=== PATIENT | male | born 1995 | race Caucasian/White ===

== ENCOUNTER 2016-06-20 19:10 | Emergency (ER) | payer BC, OTHER ==
[~2016-06-20] VITALS: Ht 162.6 cm; Wt 71.6 kg
[~2016-06-20 19:10] MED LIST changes: -BSP/10 PO; -LISD30CA4 PO
[2016-06-20 19:14] VITALS: TEMP 37.1; Ht 162.6 cm; Wt 71.6 kg
[2016-06-20] MEDS ORDERED: BSP/10 PO (20:29)
[2016-06-20] MEDS ORDERED: LISD30CA4 PO (20:29)
[2016-06-20] MEDS ORDERED: SOAP SUDS ENEMA PR ONE (20:30)
--- NOTE | 2016-06-20 20:42 | EMERGENCY ROOM VISIT NOTE ---
ED Visit Note First contact with patient: 20:03 I have seen and examined this patient with Dale Bustamante and generally agree with the treatment plan as discussed. Problem List Medical Problems: (1) Acid reflux Status: Chronic (2) Asthma Status: Resolved (3) Autism spectrum disorder Status: Chronic (4) Cornela Delang Syndrome Status: Chronic (5) Mental retardation Status: Chronic (6) PDD (pervasive developmental disorder) Status: Chronic (7) Schizophrenia Status: Chronic Current/Historical Medications Scheduled Buspirone HCl (Buspirone HCl), 10 MG PO BID Fluoxetine (Prozac), 20 MG PO QAM Lisdexamfetamine Dimesylate (Vyvanse), 30 MG PO QAM Lurasidone Hcl (Latuda), 80 MG PO QAM Montelukast Sodium (Singulair), 10 MG PO QPM Multivitamin (Multivitamin), 1 TAB PO DAILY Omeprazole (Prilosec), 20 MG PO DAILY Allergies Coded Allergies: Gluten (Unverified Allergy, Unknown, GI SYMPTOMS, 06/20/16) Pt has celiac disease - no gluten Vital Signs Date Time Temp Pulse Resp B/P Pulse Ox O2 Delivery O2 Flow Rate FiO2 06/20/16 19:14 37.1 88 18 132/68 99 Room Air Departure Information Referrals Timothy Weber M.D. (PCP) Patient Instructions My [facility]
[2016-06-20] MEDS ORDERED: MAGNESIUM CITRATE 296 ML/BTL PO ONE (22:00)
[2016-06-20 22:04] VITALS: BP 143/84; PULSE 86; O2SAT 98
--- NOTE | 2016-06-21 00:44 | EMERGENCY ROOM VISIT NOTE ---
History First contact with patient: 20:03 Chief Complaint: REFERRED BY DOCTOR Stated Complaint: BACKED UP, BLOCKED INTESTINES STOOL History of Present Illness The patient is a 20 year old male who presents to the Emergency Room with complaints of constipation for the past few days. The patient is accompanied by his mother who assists in the history and provide consent to treat. Evidently the patient has had some mild diarrhea this week and had outpatient x- ray performed. X-ray was suggestive of a severe cough and, and the patient was referred to the ER for further management. The patient himself does not have significant complaints. He does not have chest pain or shortness of breath. No blood with defecation. He has been eating and drinking as normal. He will often take a stool softener, but has not had to do that this week because of his mild diarrhea. The patient rates his discomfort a 6/10. Review of Systems More than 10 systems were reviewed and otherwise negative with the exception of history of present illness. Past Medical/Surgical History Medical Problems: (1) Acid reflux (2) Asthma (3) Autism spectrum disorder (4) Cornela Delang Syndrome (5) Mental retardation (6) PDD (pervasive developmental disorder) (7) Schizophrenia Family History Autoimmune disorder Cancer Gallbladder disease Heart disease Hypertension Kidney disease Kidney stones Lung disease Seizures Social History Smoking Status: Never Smoker Alcohol Use: none Drug Use: none Marital Status: single Housing Status: lives with family Occupation Status: [employer] student Current/Historical Medications Scheduled Buspirone HCl (Buspirone HCl), 10 MG PO BID Fluoxetine (Prozac), 20 MG PO QAM Lisdexamfetamine Dimesylate (Vyvanse), 30 MG PO QAM Lurasidone Hcl (Latuda), 80 MG PO QAM Montelukast Sodium (Singulair), 10 MG PO QPM Multivitamin (Multivitamin), 1 TAB PO DAILY Omeprazole (Prilosec), 20 MG PO DAILY Allergies Coded Allergies: Gluten (Unverified Allergy, Unknown, GI SYMPTOMS, 06/20/16) Pt has celiac disease - no gluten Physical Exam Vital Signs Date Time Temp Pulse Resp B/P Pulse Ox O2 Delivery O2 Flow Rate FiO2 06/20/16 22:04 86 17 143/84 98 06/20/16 19:14 37.1 88 18 132/68 99 Room Air Pain Rating (0-10): 0 Physical Exam VITALS: Vitals are noted on the nurse's note and reviewed by myself. Vital signs stable. GENERAL: Well-developed, well-nourished, white male, who is in no acute distress and resting comfortably. Patient is cooperative with the examination. HEAD: Normocephalic atraumatic. HEART: Regular rate and rhythm without murmurs gallops or rubs. LUNGS: Clear to auscultation bilaterally without wheezes, rales or rhonchi. No retractions or accessory muscle use. ABDOMEN: Positive normal bowel sounds x 4. Firm and minimally distended. No significant tenderness noted. MUSCULOSKELETAL: No muscle atrophy, erythema, or edema noted. Full range of motion without joint tenderness in all extremities. Medical Decision & Procedures Medications Administered Medications (Trade) Dose Ordered Sig/[place] Route Start Time Stop Time Status Last Admin Dose Admin Miscellaneous (Soap Suds Enema) [address] 06/20/16 20:30 06/20/16 20:31 DC 06/20/16 21:00 1 EA Magnesium Citrate (Citrate Of Magnesia Soln) 296 ml NOW ONCE PO 06/20/16 22:00 06/20/16 22:01 DC 06/20/16 22:00 296 ML ED Course Physical exam and history were performed. Nursing notes and EMR were reviewed. Patient appears to have constipation for the past week. X-rays were performed at this facility about 12 hours ago and were available for my review. The patient does have notable constipation. I discussed options of care with the family and elected to perform a soapsuds enema. The patient was able to tolerate this well, and had significant results following application. Overall the patient abdomen felt much softer and continued to be without tenderness following a very significant bowel movement. Overall the patient does appear stable for discharge home. The patient will be given a course of magnesium citrate to take tomorrow morning. He should return to using a stool softener. The patient and family were asked to follow with her PCP this week and otherwise invited back to the ER with any new, worsening, or concerning symptoms. The chart was completed utilizing [employer] Voice Recognition Software. Grammatical errors, random word insertions, pronoun errors, and incomplete sentences are an occasional consequence of this system due to software limitations, ambient noise, and hardware issues. Any formal questions or concerns about the content, text, or information contained within the body of this dictation should be directly addressed to the provider for clarification. . Medical Decision Differential diagnosis includes, but is not limited to: Appendicitis, cholecystitis, constipation, colitis, small bowel obstruction, viral infection, constipation, and others Impression Primary Impression: Constipation Departure Information Dispostion Home / Self-Care Condition FAIR Forms HOME CARE DOCUMENTATION FORM, IMPORTANT VISIT INFORMATION Patient Instructions My [facility] Additional Instructions You were seen and evaluated today on an emergency basis only. This is not a substitute for, or an effort to provide, complete comprehensive medical care. It is not possible to recognize and treat all injuries or illnesses in a single emergency department visit. For this reason it is recommended that you followup with your primary care physician next week if any ongoing or persistent symptoms. Take magnesium citrate tomorrow. Take half the bottle, and then 1 hour later take the other half. Be sure to drink plenty of fluids throughout the day as this medication will elicit a bowel movement. You are welcome to return to the emergency department anytime with new, worsening, or concerning symptoms.
== END 2016-06-20 22:05 | disposition home or self-care (01) ==
LOC: C.EDB 19:11 → C.EDD 22:05
DX: K59.00 Constipation, unspecified (principal); J45.909 Unspecified asthma, uncomplicated; K21.9 Gastro-esophageal reflux disease without esophagitis; F20.9 Schizophrenia, unspecified; F79 Unspecified intellectual disabilities; F84.0 Autistic disorder; Z79.899 Other long term (current) drug therapy; Z91.018 Allergy to other foods; Z80.9 Family history of malignant neoplasm, unspecified; Z83.79 Family history of other diseases of the digestive system; Z82.49 Family history of ischemic heart disease and other diseases of the circulatory system; Z84.1 Family history of disorders of kidney and ureter; Z82.0 Family history of epilepsy and other diseases of the nervous system

== ENCOUNTER → 2016-06-20 | Outpatient (CLI) | payer BC, OTHER ==
[~2016-06-20] MED LIST: BSP/10 PO; DOCU100C31 PO; FLUO20CA35 PO; LISD20CA PO; LISD30CA4 PO; LURA40TA PO; MONT1TAB3 PO; MULT-506 PO; PRLSR20 PO
--- NOTE | 2016-06-20 11:21 | DIAGNOSTIC IMAGING REPORT ---
PA CHEST RADIOGRAPH AND UPRIGHT AND SUPINE AP RADIOGRAPHS OF THE ABDOMEN CLINICAL HISTORY: Fecal incontinence. Change in bowel habits. COMPARISON STUDY: CT of the abdomen and pelvis no February 01, 2014 and chest radiograph June 26, 2014. FINDINGS: An azygos fissure is incidentally noted. No consolidation is present. There is no evidence of pulmonary edema. Cardiac size is normal. Mediastinal contours are normal. There is no free air. There is a large amount of stool within the rectum with there is a moderate to large amount stool within the colon. A 7 mm left renal calculus is noted. There is mild S-shaped scoliosis of the thoracolumbar spine. IMPRESSION: 1. Large amount of stool within the rectum consistent with fecal impaction. Moderate to large amount of stool within the colon. 2. No free air. Mild colonic distention. 3. No acute cardiopulmonary findings. 4. 7 mm left renal calculus. Electronically signed by: Adrian Merida M.D. 06/20/2016 11:19 AM Dictated Date/Time: 06/20/2016 11:17 AM
== END | disposition home or self-care (01) ==
LOC: C.RAD 10:36
PROVIDERS: ATTEND Internal Medicine Gastroenterology
DX: R15.9 Full incontinence of feces (principal); N20.0 Calculus of kidney

== ENCOUNTER 2017-07-01 12:19 | Emergency (ER) | payer BC, OTHER ==
[~2017-07-01] VITALS: Ht 162.6 cm; Wt 74.0 kg
[~2017-07-01 12:19] MED LIST changes: +BSP/10 PO; -DOCU100C31 PO; -LISD20CA PO; +LISD30CA4 PO
[2017-07-01 12:23] VITALS: Ht 162.6 cm; Wt 74.0 kg
[2017-07-01] MEDS ORDERED: LISD50CA4 PO (12:56)
[2017-07-01 13:21] LABS: BASO % 0.3 %; BASO ABS # 0.03 K/uL (0-0.2); EOS % 1.7 %; EOS ABS # 0.18 K/uL (0-0.5); HEMATOCRIT 45.3 % (42-52); IG# 0.03 K/uL (0.00-0.02); LYMPH ABS # 3.03 K/uL (1.2-3.4); MEAN CELL VOLUME 81.6 fL (80-100); MEAN CORPUSCULAR HEMOGLOBIN 28.8 pg (25-34); MEAN CORPUSCULAR HGB CONC 35.3 g/dl (32-36); MEAN PLATELET VOLUME 9.9 fL (7.4-10.4); MONO % 10.2 %; MONO ABS # 1.07 K/uL (0.11-0.59); NEUT % 58.5 %; NEUT ABS # 6.11 K/uL (1.4-6.5); PLATELET COUNT 229 K/uL (130-400); RED CELL DISTRIBUTION WIDTH CV 14.1 % (11.5-14.5); RED CELL DISTRIBUTION WIDTH SD 41.6 fL (36.4-46.3); WHITE BLOOD COUNT 10.45 K/uL (4.8-10.8)
[2017-07-01 13:41] LABS: ALBUMIN 4.4 gm/dl (3.4-5.0); CALCIUM 9.4 mg/dl (8.5-10.1); CREATININE 1.03 mg/dl (0.60-1.40); POTASSIUM 4.2 mmol/L (3.5-5.1)
[2017-07-01 13:51] LABS: TOTAL PROTEIN 7.3 gm/dl (6.4-8.2)
[2017-07-01 15:00] VITALS: BP 115/68; PULSE 62; O2SAT 98
--- NOTE | 2017-07-01 15:25 | EMERGENCY ROOM VISIT NOTE ---
History Report prepared by Tereza: Simone Sheehan Under the Supervision of: Dr. Elier Mcgee D.O. First contact with patient: 12:38 Chief Complaint: MENTAL HEALTH EVALUATION Stated Complaint: PSYCH PROBLEMS, WANTS TO BE ADMITTED History of Present Illness The patient is a 21 year old male who presents to the Emergency Room with complaints of constant depression beginning a few weeks ago. He has a history of schizophrenia, Cornela Delang Syndrome, and PDD. He states "I feel worthless ever since I was admitted to the [facility]". The patient denies suicidal or homicidal ideations. He most recently ate a granola bar two hours ago - he has been eating and drinking normally. He has been sleeping normally. Per mother, the patient had a meeting with [facility] to help the patient improve with thriving in society. She states that he has been struggling a lot with his routine tasks, and nothing has improved his depression. She feels that the patient has not been telling her all of his thoughts because he is afraid of being admitted at the [facility] again. The patient notes that he has a history of problems with his bowels and is occasionally unable to make it to the toilet before defecating. He states that this often happens with standing up rapidly. The patient denies back pain, numbness, or weakness. No chest pain or shortness of breath. Source of History: patient, parent (mother) Onset: A few weeks ago Quality: other (depression) Timing: constant Modifying Factors (Relieving): other (none) Associated Symptoms: No back pain, No weakness, No numbness Review of Systems See HPI for pertinent positives & negatives. A total of 10 systems reviewed and were otherwise negative. Past Medical & Surgical Medical Problems: (1) Acid reflux (2) Asthma (3) Autism spectrum disorder (4) Cornela Delang Syndrome (5) Mental retardation (6) PDD (pervasive developmental disorder) (7) Schizophrenia Family History Autoimmune disorder Cancer Gallbladder disease Heart disease Hypertension Kidney disease Kidney stones Lung disease Seizures Social History Smoking Status: Never Smoker Alcohol Use: none Drug Use: none Marital Status: single Housing Status: lives with family Occupation Status: [employer] student Current/Historical Medications Scheduled Buspirone HCl (Buspirone HCl), 10 MG PO TID Fluoxetine (Prozac), 20 MG PO QAM Lisdexamfetamine Dimesylate (Vyvanse), 50 MG PO DAILY Lurasidone Hcl (Latuda), 80 MG PO QAM Montelukast Sodium (Singulair), 10 MG PO QPM Multivitamin (Multivitamin), 1 TAB PO DAILY Omeprazole (Prilosec), 20 MG PO DAILY Allergies Coded Allergies: Gluten (Unverified Allergy, Unknown, GI SYMPTOMS, 06/20/16) Pt has celiac disease - no gluten Physical Exam Vital Signs Date Time Temp Pulse Resp B/P (MAP) Pulse Ox O2 Delivery O2 Flow Rate FiO2 07/01/17 15:00 62 18 115/68 98 07/01/17 14:24 62 18 115/68 98 Room Air 07/01/17 12:23 36.8 66 16 121/61 98 Room Air Physical Exam GENERAL: Sitting up in bed, disheveled, no distress, non-toxic EYE EXAM: normal conjunctiva. OROPHARYNX: no exudate, no erythema, lips, buccal mucosa, and tongue normal and mucous membranes are moist NECK: supple, no nuchal rigidity, no adenopathy, non-tender LUNGS: Clear to auscultation. Normal chest wall mechanics HEART: no murmurs, S1 normal and S2 normal ABDOMEN: abdomen soft, non-tender, normo-active bowel sounds, no masses, no rebound or guarding. BACK: Back is symmetrical on inspection and there is no deformity, no midline tenderness, no CVA tenderness. SKIN: no rashes and no bruising UPPER EXTREMITIES: upper extremities are grossly normal. LOWER EXTREMITIES: No pitting edema. NEURO EXAM: Awake, alert, following commands. No focal deficit. PSYCH: Denies suicidal or homicidal ideations. Denies auditory and visual hallucinations. Medical Decision & Procedures Laboratory Results 07/01/17 13:09 Red Blood Count 5.55, Mean Corpuscular Volume 81.6, Mean Corpuscular Hemoglobin 28.8, Mean Corpuscular Hemoglobin Concent 35.3, Mean Platelet Volume 9.9, Neutrophils (%) (Auto) 58.5, Lymphocytes (%) (Auto) 29.0, Monocytes (%) (Auto) 10.2, Eosinophils (%) (Auto) 1.7, Basophils (%) (Auto) 0.3, Neutrophils # (Auto ) 6.11, Lymphocytes # (Auto) 3.03, Monocytes # (Auto) 1.07, Eosinophils # (Auto ) 0.18, Basophils # (Auto) 0.03 07/01/17 13:09 Test 07/01/17 12:57 07/01/17 13:09 Urine Color YELLOW Urine Appearance CLEAR (CLEAR) Urine pH 7.0 (4.5-7.5) Urine Specific [place] 1.025 (1.000-1.030) Urine Protein NEG (NEG) Urine Glucose (UA) NEG (NEG) Urine Ketones TRACE (NEG) Urine Occult Blood NEG (NEG) Urine Nitrite NEG (NEG) Urine Bilirubin 1+ (NEG) Urine Urobilinogen POS (NEG) Urine Leukocyte Esterase NEG (NEG) Urine Opiates Screen NEG (NEG) Urine Methadone, Qualitative NEG (NEG) Urine Barbiturates NEG (NEG) Urine Phencyclidine (PCP) Level NEG (NEG) Ur Amphetamine/Methamphetamine NEG (NEG) MDMA (Ecstasy) Screen NEG (NEG) Urine Benzodiazepines Screen NEG (NEG) Urine Cocaine Metabolite NEG (NEG) Urine Marijuana (THC) NEG (NEG) White Blood Count 10.45 K/uL (4.8-10.8) Red Blood Count 5.55 M/uL (4.7-6.1) Hemoglobin 16.0 g/dL (14.0-18.0) Hematocrit 45.3 % (42-52) Mean Corpuscular Volume 81.6 fL (80-100) Mean Corpuscular Hemoglobin 28.8 pg (25-34) Mean Corpuscular Hemoglobin Concent 35.3 g/dl (32-36) Platelet Count 229 K/uL (130-400) Mean Platelet Volume 9.9 fL (7.4-10.4) Neutrophils (%) (Auto) 58.5 % Lymphocytes (%) (Auto) 29.0 % Monocytes (%) (Auto) 10.2 % Eosinophils (%) (Auto) 1.7 % Basophils (%) (Auto) 0.3 % Neutrophils # (Auto) 6.11 K/uL (1.4-6.5) Lymphocytes # (Auto) 3.03 K/uL (1.2-3.4) Monocytes # (Auto) 1.07 K/uL (0.11-0.59) Eosinophils # (Auto) 0.18 K/uL (0-0.5) Basophils # (Auto) 0.03 K/uL (0-0.2) RDW Standard Deviation 41.6 fL (36.4-46.3) RDW Coefficient of Variation 14.1 % (11.5-14.5) Immature Granulocyte % (Auto) 0.3 % Immature Granulocyte # (Auto) 0.03 K/uL (0.00-0.02) Anion Gap 3.0 mmol/L (3-11) Est Creatinine Clear Calc Drug Dose 103.6 ml/min Estimated GFR () 119.0 Estimated GFR (Non- 102.6 BUN/Creatinine Ratio 6.3 (10-20) Calcium Level 9.4 mg/dl (8.5-10.1) Total Bilirubin 2.0 mg/dl (0.2-1) Direct Bilirubin 0.4 mg/dl (0-0.2) Aspartate Amino Transf (AST/SGOT) 17 U/L (15-37) Alanine Aminotransferase (ALT/SGPT) 35 U/L (12-78) Alkaline Phosphatase 76 U/L (45-117) Total Protein 7.3 gm/dl (6.4-8.2) Albumin 4.4 gm/dl (3.4-5.0) Thyroid Stimulating Hormone (TSH) 1.310 uIu/ml (0.300-4.500) Ethyl Alcohol mg/dL < 3.0 mg/dl (0-3) Laboratory results per my review. ED Course ED COURSE: Vital signs were reviewed and appear normal. The patients medical record was reviewed The above diagnostic studies were performed and reviewed. ED treatments and interventions as stated above. 1240: The patient was evaluated in room A5. A complete history and physical examination was performed. 1400: Patient is medically stable. He will be evaluated by mental health. 1430: I spoke with the outpatient case manager. She feels that the patient would likely be safe for discharge home with outpatient care, but will speak with the patient and his mother about it now. 1452: Upon reevaluation, the patient is resting comfortably. I discussed my findings with the patient and his mother, and they understand and agree with the treatment plan. Based on the patients age, coexisting illnesses, exam and lab findings the decision to treat as an outpatient was made. The patient remained stable while under my care. The patient appeared well at the time of discharge. Medical Decision Differential diagnosis: Etiologies such as mood disorder, infection, hypoglycemia, electrolyte abnormalities, cardiac sources, intracerebral event, toxicologic, neurologic, as well as others were entertained. Patient is a 21-year-old male who is intellectually delayed who came in with his mother for depression. He does have an extensive network of providers as an outpatient. He denies any suicidal or homicidal ideations. He has been eating and drinking. He last ate just prior to arrival which was a candy bar. He did and has been sleeping little bit more than usual. Labs were obtained and CBC along with BMP were unremarkable. Bilirubin was slightly elevated. LFTs and TSH was normal. Tox, alcohol were all negative. UA was negative. Patient was evaluated by Xiomara from her psych team. Patient does not meet any inpatient criteria. He does intermittently hear voices which are not telling him to do anything. He is not a danger to himself. Mom was extremely unhappy with this. We had a long conversation. He offered to set up additional outpatient help. Patient was discharged follow-up with PCP, psychiatrist and therapist as an outpatient. Discussed with Pt concerning signs and symptoms to watch out for. Pt was instructed to follow up with their PCP and discussed with the patient their option to return to the ED at anytime for persistent or worsening symptoms. The appropriate anticipatory guidance and out-patient management, including indications for return to the emergency department, were explained at length to the patient and understood. Medication Reconcilliation Current Medication List: was personally reviewed by me Blood Pressure Screening Patient's blood pressure: Normal blood pressure Blood pressure disposition: Did not require urgent referral Impression Primary Impression: Mood disorder Additional Impression: Depression Scribe Attestation The scribe's documentation has been prepared under my direction and personally reviewed by me in its entirety. I confirm that the note above accurately reflects all work, treatment, procedures, and medical decision making performed by me. Departure Information Dispostion Home / Self-Care Referrals No Doctor, Assigned (PCP) Forms HOME CARE DOCUMENTATION FORM, IMPORTANT VISIT INFORMATION Patient Instructions Depression Help Tips, Depression Suicide Older Adults, ED Depression, My [facility] Additional Instructions Please follow up with your primary care doctor with in the next 24 hours. Any worsening of your symptoms, please return to the ED immediately. This includes any thoughts of self-harm, thoughts of harming someone else, worsening auditory or visual hallucinations, unable to eat, unable to sleep or any other concerning signs or symptoms from your standpoint. Problem Qualifiers Additional Impression: Depression Depression Type: unspecified Qualified Codes: F32.9 - Major depressive disorder, single episode, unspecified
== END 2017-07-01 15:03 | disposition home or self-care (01) ==
LOC: C.EDB 12:20 → C.EDA 15:03
DX: F39 Unspecified mood [affective] disorder (principal); F32.9 Major depressive disorder, single episode, unspecified; J45.909 Unspecified asthma, uncomplicated; F84.0 Autistic disorder; F79 Unspecified intellectual disabilities; F84.9 Pervasive developmental disorder, unspecified; F20.9 Schizophrenia, unspecified; Z82.0 Family history of epilepsy and other diseases of the nervous system; Z82.49 Family history of ischemic heart disease and other diseases of the circulatory system; Z79.899 Other long term (current) drug therapy

== ENCOUNTER 2021-02-12 21:22 | Observation (INO) ==
--- NOTE | 2021-02-12 23:38 | Emergency Department Note ---
History of Present Illness General Chief complaint: Skin Problem Stated complaint: CELLULITIS PAIN Time Seen by Provider: 02/12/21 23:26 History of Present Illness This is a 25-year-old male that presents to the emergency department via private vehicle accompanied by female with complaints of "cellulitis, pain". The patient notes a history of infection to the right foot. He was initially prescribed Bactrim from 01/30-02/09. He was doing well over the past 3 days after finishing the antibiotic however the person at the bedside that is accompanying the patient notes that he began complaining of pain tonight and they evaluated his foot and noted that there was erythema. She feels that there is more involvement now of the toes and dorsum of the foot in regard to edema. The patient does note pain overlying the foot. No nausea, vomiting, fevers or chills. Home Medications Medication Instructions Recorded Confirmed Type acetaminophen 325 mg tablet 325 mg PO Q4 PRN MDD 3g 08/01/20 02/13/21 History aripiprazole 5 mg tablet 5 mg PO DAILY 08/01/20 02/13/21 History buspirone 10 mg tablet 10 mg PO BID 08/01/20 02/13/21 History fluoxetine 20 mg capsule 20 mg PO DAILY 08/01/20 02/13/21 History multivitamin,tx-minerals 1 tab PO DAILY 08/01/20 02/13/21 History polyethylene glycol 3350 17 17 g PO DAILY 08/01/20 02/13/21 History gram/dose oral powder (Miralax) dextroamphetamine-amphetamine ER 20 mg PO DAILY 02/13/21 02/13/21 History 20 mg 24hr capsule,extend release emollient combination no.41 (Gold 1 ea TOPICAL TID PRN 02/13/21 02/13/21 History [employer]) guaifenesin 100 mg/5 mL oral liquid 200 mg PO Q4H PRN MDD 6 02/13/21 02/13/21 History HOURS ibuprofen 600 mg tablet 600 mg PO QID PRN 02/13/21 02/13/21 History loperamide 2 mg capsule 2 mg PO DIRECTED PRN 02/13/21 02/13/21 History omeprazole 20 mg capsule,delayed 20 mg PO DAILY 02/13/21 02/13/21 History release sodium chloride 0.65 % nasal spray 1 spray INTRANASAL DIRECTED PRN 02/13/21 02/13/21 History aerosol (Sunflower Nasal) Allergies Allergy/AdvReac Type Severity Reaction Status Date / Time gluten Allergy Intermediate GI SYMPTOMS Verified 02/13/21 00:38 SEASONAL Allergy Intermediate ITCHY Uncoded 02/13/21 00:38 EYES, SNEEZING, CONGESTION Past Med/Surg History Medical History Acid reflux Asthma Autism spectrum disorder Bronchitis Mental retardation MRSA (methicillin resistant Staphylococcus aureus) Obesity PDD (pervasive developmental disorder) Schizophrenia Social History Smoking Status: Never smoker Hx Alcohol Use: No Hx Substance Use: No Preferred Language: Peruvian Communication Ability: Effective Foreman/Project Manager Required: No Beliefs That Will Affect Care: None Current Living Situation: Other Current Living Situation Comment: [facility] halfway Other Information That Helps Us Care for You: No Feels Safe at Home: Yes Safety Concerns: Feels Safe At This Time Assistive Devices: Glasses Review of Systems A total of 10 systems reviewed and were otherwise negative Physical Exam Vital Signs Vital Signs - 24 hr 02/12/21 21:26 02/13/21 00:19 Temperature 36.3 C L Temperature Source Temporal Artery Scan Pulse Rate 74 Pulse Rate [Finger] 80 Pulse Rhythm Regular Pulse Strength Normal Respiratory Rate 18 18 Respiratory Effort / Characteristics Non-Labored Spontaneous Respiratory Depth Normal Respiratory Pattern Regular Blood Pressure 128/73 Blood Pressure [Right Arm] 116/82 Blood Pressure Mean 91 Blood Pressure Mean [Right Arm] 93 Blood Pressure Position Sitting Pulse Oximetry 97 95 Oxygen Delivery Method Room Air Room Air Sepsis Recent Fever Within 48 Hours No Sepsis New/Unexplained Change in Mental Status N/A Sepsis Action Taken by Nursing No Action Required VITAL SIGNS - Vital signs and nursing notes were reviewed. Stable and afebrile. GENERAL -25-year-old male appearing has stated age who is in no acute distress. Communicates well with provider and answers questions appropriately. SKIN -there is diffuse erythema overlying the dorsum of all toes of the right foot that extends into the dorsum of the right foot and right lateral foot to the heel. There is edema involving this region as well. Between the fourth and fifth toes there is some macerated tissue but no evidence of purulence to sample. Patient is quite tender to palpation between the fourth and fifth toes/MTP joints. HEAD - NC/AT. EYES - Sclera anicteric. LUNGS - Chest wall symmetric without accessory muscle use, intercostals retractions, or central cyanosis. Normal vesicular breath sounds CTA B/L. No wheezes, rales, or rhonchi appreciated. CARDIAC - RRR with S1/S2. No murmur, rubs, or gallops appreciated. EXTREMITIES - No clubbing or peripheral cyanosis. There is tenderness palpation overlying the entire right dorsum of the foot and toes. No fluctuance. There is edema noted to this area as well as erythema as described above. Cap refill within normal limits of all toes. +5/5 strength noted in UE/LE bilaterally. NEUROLOGIC -patient is neurovascularly intact to light touch throughout the right foot. PSYCH - A&O, and cooperates fully with examiner. Pt is very pleasant and interacts well with examiner. Course Administered Medications Discontinued Medications Ceftriaxone Sodium (Rocephin) 1,000 mg in 50 mls @ 100 mls/hr IV NOW STA Stop: 02/13/21 00:55 Last Infusion: 02/13/21 01:20 Dose: 0 mls/hr Documented by: [id number] Admin: 02/13/21 00:50 Dose: 100 mls/hr Documented by: [id number] Vancomycin HCl 2,000 mg/ (Sodium Chloride) 540 mls @ 200 mls/hr IV NOW ONE Stop: 02/13/21 03:37 Last Infusion: 02/13/21 04:04 Dose: 0 mls/hr Documented by: [id number] Admin: 02/13/21 01:22 Dose: 200 mls/hr Documented by: [id number] Medical Decision Making Laboratory Data Result diagrams: 02/12/21 23:56 02/12/21 23:56 Lab Results 02/12/21 02/12/21 02/13/21 Range/Units 23:56 23:56 00:35 WBC 14.25 H (4.8-10.8) K/uL RBC 5.62 (4.7-6.1) M/uL Hgb 15.7 (14.0-18.0) g/dL Hct 46.2 (42-52) % MCV 82.2 (80-100) fL MCH 27.9 (25-34) pg MCHC 34.0 (32-36) g/dL RDW Std Deviation 40.2 (36.4-46.3) fL RDW Coeff of Ayaka 13.5 (11.5-14.5) % Plt Count 271 (130-400) K/uL MPV 10.1 (7.4-10.4) fL Immature Gran % (Auto) 0.4 % Neut % (Auto) 57.3 % Lymph % (Auto) 28.7 % Wright % (Auto) 8.1 % Eos % (Auto) 5.0 % Baso % (Auto) 0.5 % Neut # (Auto) 8.16 H (1.4-6.5) K/uL Lymph # (Auto) 4.09 H (1.2-3.4) K/uL Wright # (Auto) 1.16 H (0.11-0.59) K/uL Eos # (Auto) 0.71 H (0-0.5) K/uL Baso # (Auto) 0.07 (0-0.2) K/uL Immature Gran # (Auto) 0.06 H (0.00-0.02) K/uL Sodium 136 (136-145) mmol/L Potassium (3.5-5.1) mmol/L Chloride 102 (98-107) mmol/L Carbon Dioxide 31 (21-32) mmol/L Anion Gap 3.0 (3-11) BUN 8 (7-18) mg/dl Creatinine 1.11 (0.6-1.4) mg/dl Est Cr Clr Drug Dosing 104.3 ml/min Est GFR ( Amer) 105.7 ml/min Est GFR (Non-Af Amer) 91.2 ml/min BUN/Creatinine Ratio 7.0 L (10-20) Glucose 119 H (70-99) mg/dl Lactate (0.4-2.0) mmol/L Calcium 9.6 (8.5-10.1) mg/dl Total Bilirubin 1.1 H (0.2-1) mg/dl AST (15-37) U/L ALT 74 (12-78) U/L Alkaline Phosphatase 101 (45-117) U/L Total Protein 7.8 (6.4-8.2) gm/dl Albumin 4.1 (3.4-5.0) gm/dl Globulin 3.7 (2.5-4.0) gm/dl Albumin/Globulin Ratio 1.1 (0.9-2) SARS-CoV-2, RNA, NAAT NEGATIVE (NEGATIVE) 02/13/21 Range/Units 00:40 WBC (4.8-10.8) K/uL RBC (4.7-6.1) M/uL Hgb (14.0-18.0) g/dL Hct (42-52) % MCV (80-100) fL MCH (25-34) pg MCHC (32-36) g/dL RDW Std Deviation (36.4-46.3) fL RDW Coeff of Ayaka (11.5-14.5) % Plt Count (130-400) K/uL MPV (7.4-10.4) fL Immature Gran % (Auto) % Neut % (Auto) % Lymph % (Auto) % Wright % (Auto) % Eos % (Auto) % Baso % (Auto) % Neut # (Auto) (1.4-6.5) K/uL Lymph # (Auto) (1.2-3.4) K/uL Wright # (Auto) (0.11-0.59) K/uL Eos # (Auto) (0-0.5) K/uL Baso # (Auto) (0-0.2) K/uL Immature Gran # (Auto) (0.00-0.02) K/uL Sodium (136-145) mmol/L Potassium (3.5-5.1) mmol/L Chloride (98-107) mmol/L Carbon Dioxide (21-32) mmol/L Anion Gap (3-11) BUN (7-18) mg/dl Creatinine (0.6-1.4) mg/dl Est Cr Clr Drug Dosing ml/min Est GFR ( Amer) ml/min Est GFR (Non-Af Amer) ml/min BUN/Creatinine Ratio (10-20) Glucose (70-99) mg/dl Lactate 1.3 (0.4-2.0) mmol/L Calcium (8.5-10.1) mg/dl Total Bilirubin (0.2-1) mg/dl AST (15-37) U/L ALT (12-78) U/L Alkaline Phosphatase (45-117) U/L Total Protein (6.4-8.2) gm/dl Albumin (3.4-5.0) gm/dl Globulin (2.5-4.0) gm/dl Albumin/Globulin Ratio (0.9-2) SARS-CoV-2, RNA, NAAT (NEGATIVE) MDM Narrative Patient was seen and evaluated as above in room B05. Review was performed of triage nursing notes and vital signs. After obtaining a thorough history and ph ysical examination the above work up was performed. Patient presents to us today with erythema and edema to the right foot. No reported trauma or injury. He notes a history recently of cellulitis and the person accompanying the patient does note that he was recently on a course of antibiotics and just finished these on 02/09. Per review of the chart it appears that he was on Bactrim. On examination there is a fair amount of erythema involving the right foot, dorsal region extending from the MTP joints and toes to the right lateral foot and heel region. No concerning break in the integument. No fluctuance to suggest abscess. Options of care were discussed with the patient. IV access was established. Labs were drawn. X-ray per my interpretation reveals no foreign body. No erosive change. Laboratory studies reveal leukocytosis 14.25 without anemia. No emergent metabolic disturbance. Covid test negative. Rocephin was ordered. Upon reevaluation and with the patient's feet being elevated on the examination bed the patient does appear to have decreased erythema but still quite tender throughout the distal dorsal right foot region. With the patient having the same area of pain and erythema that was treated with Bactrim x10 days now with return of symptoms it is felt that further evaluation and management in the inpatient setting is warranted. This was discussed with the hospitalist. I did add vancomycin on for additional coverage. Please refer to further document ation regarding the patient's stay. GCS: 15 In the evaluation and treatment of this patient the following differential diagnoses were entertained: Fracture, dislocation, subluxation, contusion, cell ulitis, thermal injury, osteomyelitis, among others. Impression & Plan Cellulitis of foot Discharge Plan Visit Data Chief Complaint: Skin Problem Stated Complaint: CELLULITIS PAIN ED Provider: Ankit Mohan ED Midlevel Provider: Miles Sandhu Discharge Problem: Cellulitis of foot Patient Disposition: Admitted As Inpatient Discharge Instructions Interventions: ED Discharge Assessment Last Done: 02/13/21 01:41
[2021-02-13 00:12] LABS: Basophils # (auto) 0.07 K/uL (0-0.2); Basophils % (auto) 0.5 %; Eosinophils # (auto) 0.71 K/uL (0-0.5); Hematocrit (blood only) 46.2 % (42-52); Hemoglobin 15.7 g/dL (14.0-18.0); Immature Granulocytes # (auto) 0.06 K/uL (0.00-0.02); Immature Granulocytes % (auto) 0.4 %; Lymphocytes # (auto) 4.09 K/uL (1.2-3.4); Lymphocytes % (auto) 28.7 %; Mean Corpuscular Hemoglobin 27.9 pg (25-34); Mean Corpuscular Volume 82.2 fL (80-100); Mean Platelet Volume 10.1 fL (7.4-10.4); Monocytes # (auto) 1.16 K/uL (0.11-0.59); Monocytes % (auto) 8.1 %; Neutrophils # (auto) 8.16 K/uL (1.4-6.5); Neutrophils % (auto) 57.3 %; Platelet Count 271 K/uL (130-400); RDW Coefficient of Variation 13.5 % (11.5-14.5); RDW Standard Deviation 40.2 fL (36.4-46.3); Red Blood Count 5.62 M/uL (4.7-6.1); White Blood Count 14.25 K/uL (4.8-10.8)
[2021-02-13] MEDS ORDERED: cefTRIAXone SODIUM 1,000 MG/50 ML BAG IV STA (00:26)
--- NOTE | 2021-02-13 00:47 | History & Physical Report ---
Date of Service February 13, 2021 Assessment & Plan (1) Cellulitis of foot: Plan: Patient is a 25 year old male with PMHx GERD, Schizophrenia, Autism spectrum disorder, Pervasive developmental disorder, who presents with complaint of cellulitis of the R foot that had been previously treated with Bactrim x10 days, now with recurring pain. R foot Cellulitis -Recent treatment with Bactrim DS from 01/30-02/09/21, now with recurrence vs. need for longer treatment -XR of foot on my read does not appear to show signs of osteo, follow up on final read in AM -Blood cultures pending, wound cultures ordered though may be difficult based on location -Empiric coverage with CTX and Vancomycin, though lesion appears more strep-like in appearance. MRSA coverage as patient lives in a home. GERD -Continue home omeprazole Hx Schizophrenia/Mood Disorder/ASD/PDD -Continue home Fluoxetine -Continue home Adderall XR -Continue home Aripiprazole -Continue home Buspirone Dispo: Med/Surg for IV antibiotics FEN: Regular diet DVT: SCDs Code: Full History of Present Illness Chief Complaint: R foot cellulitis Primary Care Provider: Michelle Montague Patient is a 25 year old male with PMHx GERD, Schizophrenia, Autism spectrum disorder, Pervasive developmental disorder, who presents with complaint of cellulitis of the R foot that had been previously treated with Bactrim x10 days, now with recurring pain. Patient was seen initially at his PCPs office on 01/30/21 for redness and swelling of the R foot, though to be secondary to cellulitis from a wound inbetween the 4th and 5th digits. He was started on Bactrim for additional MRSA coverage as he lives in a detention and has noticed fair improvement upon completion of the course on 02/09/21, however, noted the past day to have increased pain. He currently notes that he has pain primarily with palpation of the R foot near the 4th and 5th digits. He denies any fever, chills, SOB, chest pain, abdominal pain, headache, visual changes, dysuria, NVD. Med Hx: Schizophrenia, Autism spectrum disorder, Pervasive developmental disorder, GERD Surg Hx: None Soc HX: Denies tobacco use Allergies Allergy/AdvReac Type Severity Reaction Status Date / Time gluten Allergy Intermediate GI SYMPTOMS Verified 02/13/21 00:38 SEASONAL Allergy Intermediate ITCHY Uncoded 02/13/21 00:38 EYES, SNEEZING, CONGESTION Home Medications Medication Instructions Recorded Confirmed Type acetaminophen 325 mg tablet 325 mg PO Q4 PRN MDD 3g 08/01/20 02/13/21 History aripiprazole 5 mg tablet 5 mg PO DAILY 08/01/20 02/13/21 History buspirone 10 mg tablet 10 mg PO BID 08/01/20 02/13/21 History fluoxetine 20 mg capsule 20 mg PO DAILY 08/01/20 02/13/21 History multivitamin,tx-minerals 1 tab PO DAILY 08/01/20 02/13/21 History polyethylene glycol 3350 17 17 g PO DAILY 08/01/20 02/13/21 History gram/dose oral powder (Miralax) dextroamphetamine-amphetamine ER 20 mg PO DAILY 02/13/21 02/13/21 History 20 mg 24hr capsule,extend release emollient combination no.41 (Gold 1 ea TOPICAL TID PRN 02/13/21 02/13/21 History [employer]) guaifenesin 100 mg/5 mL oral liquid 200 mg PO Q4H PRN MDD 6 02/13/21 02/13/21 History HOURS ibuprofen 600 mg tablet 600 mg PO QID PRN 02/13/21 02/13/21 History loperamide 2 mg capsule 2 mg PO DIRECTED PRN 02/13/21 02/13/21 History omeprazole 20 mg capsule,delayed 20 mg PO DAILY 02/13/21 02/13/21 History release sodium chloride 0.65 % nasal spray 1 spray INTRANASAL DIRECTED PRN 02/13/21 02/13/21 History aerosol (Whitney Nasal) Past Med/Surg History Medical History Acid reflux Asthma Autism spectrum disorder Bronchitis Mental retardation MRSA (methicillin resistant Staphylococcus aureus) Obesity PDD (pervasive developmental disorder) Schizophrenia Social History Smoking Status: Never smoker Hx Alcohol Use: No Hx Substance Use: No Preferred Language: Greek Communication Ability: Effective Grab Jack Man Required: No Beliefs That Will Affect Care: None marital status: Single Current Living Situation: Other Current Living Situation Comment: [facility] detention How many Children do You have: 0 Other Information That Helps Us Care for You: No Feels Safe at Home: Yes Safety Concerns: Feels Safe At This Time Assistive Devices: None Review of Systems Review of Systems: All systems reviewed & are unremarkable except as noted in Subjective Physical Exam Constitutional: WD/WN, vitals as above Eyes: PERRL, conjunctivae normal, anicteric sclerae ENMT: external ear and nose normal, oropharynx normal Neck: trachea midline, no thyromegaly Respiratory: normal respiratory effort, lungs clear to auscultation Cardiovascular: RRR, no murmur, no edema Gastrointestinal (Abdomen): normal bowel sounds, soft, nontender, no hepatosplenomegaly Musculoskeletal: no cyanosis or clubbing, extremities motor strength 5/5 Skin: Erythema noted of the distal RLE covering primarily the toes 2-5 with TTP of the area overlying between digits 4-5. Small open lesion between digits 4-5 more on digit 5 with skin sloughing. No discharge. Neurologic: PERRL, EOMI, accommodation nl, no face palsy, no dysarthria Results & Data Results & Data ([facility]) Vital Signs (Past 12 Hours) Vital Signs Temp Pulse Pulse Resp BP BP Pulse Ox 02/13/21 00:19 80 18 116/82 95 02/12/21 21:26 36.3 C L 74 18 128/73 97 Supervising Physician Co-Signing Physician Notes Attending addendum: I have physically seen this patient, have supervised the medical residents activities, and agree with the H&P unless as otherwise noted. Assessment and Plan: Right foot cellulitis- Vancomycin IV and ceftriaxone IV Check arterial Dopplers Today of outpatient treatment with Bactrim Schizophrenia/mood disorder/ASD/PDD- Continue fluoxetine, Adderall XR, aripiprazole and buspirone Remaining orders and notations as noted Resident Activity Tracking Resident Involvement: Resident Care Provided Care Provided: Adult Hospital Medicine
[2021-02-13] MEDS ORDERED: VANCOMYCIN CONSULT ACTIVE PRN ×2 (00:56→01:53)
[2021-02-13] MEDS ORDERED: VANCOMYCIN HCL 2,000 MG in SODIUM CHLORIDE 0.9% 500 ML IV ONE ×2 (00:56→01:53)
[2021-02-13 00:58] LABS: Albumin Level 4.1 gm/dl (3.4-5.0); Calcium 9.6 mg/dl (8.5-10.1); Creatinine Clr Calc Pharmacy 104.3 ml/min; Est GFR (African American) 105.7 ml/min; Est GFR (Non-African American) 91.2 ml/min
[2021-02-13 01:02] LABS: Albumin Globulin Ratio 1.1 (0.9-2); Bilirubin,Total 1.1 mg/dl (0.2-1); Globulin 3.7 gm/dl (2.5-4.0); Total Protein 7.8 gm/dl (6.4-8.2)
[2021-02-13] MEDS ORDERED: ACETAMINOPHEN 325 MG TAB PO PRN (01:53)
[2021-02-13] MEDS ORDERED: ONDANSETRON INJ 2 MG/ML 2 ML VIAL IV PRN (01:53)
[2021-02-13 07:31] LABS: Basophils # (auto) 0.05 K/uL (0-0.2); Basophils % (auto) 0.5 %; Eosinophils # (auto) 0.52 K/uL (0-0.5); Eosinophils % (auto) 5.6 %; Hematocrit (blood only) 45.7 % (42-52); Hemoglobin 16.4 g/dL (14.0-18.0); Immature Granulocytes # (auto) 0.03 K/uL (0.00-0.02); Immature Granulocytes % (auto) 0.3 %; Lymphocytes % (auto) 27.9 %; Mean Corpuscular Hemoglobin 29.3 pg (25-34); Mean Corpuscular Hgb Conc 35.9 g/dL (32-36); Mean Corpuscular Volume 81.6 fL (80-100); Mean Platelet Volume 9.5 fL (7.4-10.4); Monocytes # (auto) 0.89 K/uL (0.11-0.59); Monocytes % (auto) 9.5 %; Neutrophils # (auto) 5.23 K/uL (1.4-6.5); Neutrophils % (auto) 56.2 %; Platelet Count 215 K/uL (130-400); RDW Coefficient of Variation 13.5 % (11.5-14.5); RDW Standard Deviation 40.4 fL (36.4-46.3); White Blood Count 9.32 K/uL (4.8-10.8)
[2021-02-13 08:06] LABS: BUN Creatinine Ratio 8.6 (10-20); Creatinine Clr Calc Pharmacy 120.2 ml/min; Est GFR (African American) 125.9 ml/min; Est GFR (Non-African American) 108.7 ml/min; Potassium 4.1 mmol/L (3.5-5.1)
[2021-02-13] MEDS: busPIRone 5 MG TAB PO SCH ×2 (08:29→19:39)
[2021-02-13] MEDS: FLUoxetine HCL 20 MG CAP PO SCH (08:29)
[2021-02-13] MEDS: ARIPiprazole 5 MG TAB PO SCH (08:29)
[2021-02-13] MEDS: DEXTROAMPHETAMINE/AMPHETAMINE ER 10 MG CAP PO SCH (08:29)
[2021-02-13] MEDS: POLYETHYLENE (MIRALAX) 17 GM PACK PO SCH (08:33)
--- NOTE | 2021-02-13 08:56 | XRay Report ---
XR foot RT min 3V routine CLINICAL HISTORY: Right foot infection. COMPARISON: None FINDINGS: Alignment of the right foot is anatomic. Tarsometatarsal joints are intact. No acute fract ure is identified. There is no radiographic evidence for acute osteomyelitis. Dorsal soft tissue swel ling is noted on lateral projection. IMPRESSION: 1. No acute fracture. No radiographic evidence for acute osteomyelitis within the right foot. 2. Dorsal soft tissue swelling of the right foot. ACT 112: Negative or not required by law. Electronically signed by: Adrian Merida M.D. 02/13/2021 8:54 AM
--- NOTE | 2021-02-13 09:08 | Pharmacy Report ---
Pharmacy Abx Dose Short Note - Date of Service February 13, 2021 - Assessment & Plan Assessment 25 year old M receiving empiric vancomycin for treatment of R foot cellulitis * Previously treated with bactrim x 10 days (01/30-02/09) - patient reports improvement on bactrim with return of pain over the past 24 hours * Per H&P, lesions appear more strep-like. Provider desires MRSA coverage per patient lives in a snf. Plan Vancomycin * Loading dose: 2000 mg (20.7 mg/kg) * Maintenance dose: 1250 mg IV q12h (12.9 mg/kg) * A trough level will be ordered to facilitate calculation of AUC/RHEA. Goal AUC/RHEA 400-600. * Level ordered for: 02/14 @ 1130 Pharmacy will continue to follow and will adjust dose/frequency as necessary. Thank you.
[2021-02-13] MEDS: PANTOprazole 40 MG TAB PO SCH (09:17)
[2021-02-13] MEDS ORDERED: VANCOMYCIN HCL 1,250 MG in SODIUM CHLORIDE 0.9% 250 ML IV SCH (12:00)
[2021-02-13 14:14] LABS: Estimated Average Glucose 151 mg/dl; Hemoglobin A1C 6.9 % (4.5-5.6)
[2021-02-13] MEDS: ceFAZolin 2000MG 2,000 MG/15 ML SYR IV SCH ×2 (14:47→21:41)
--- NOTE | 2021-02-13 16:06 | Communication Note ---
Date of Service: February 13, 2021 25-year-old white male with an underlying history of schizophrenia, ADD, mood disorder, and intellectual disability. He resides in a fpc. Treated with Bactrim from 01/30 through 02/09 for cellulitis of his right lower extremity. Reports it was better while he was on this but never completely resolved and got worse once he completed the full course prompting him to seek medical attention in the. White blood cell count was 14.25 but otherwise he was hemodynamically stable and afebrile. The rest of his lab data was unremarkable. X-ray of the lower extremity showed no evidence of osteomyelitis. He was subsequently hospitalized after being administered Rocephin and IV vancomycin Patient remains afebrile and hemodynamically stable He is in a regular rate and rhythm without murmurs gallops rubs CTA without wheezes, rales or rhonchi Right lower extremity with mild maceration between the fourth and fifth toe with corresponding cellulitis at the top of the right foot at the bases of these toes. It seems to be receding from the area of demarcation (by approximately 50%). No lymphangitic streaking noted. 1. Cellulitis of the right lower extremity 2. Impaired fasting glucose (blood sugar 118 and patient on antipsychotic medications) 3. Schizophrenia 4. ADD 5. Mood disorder * Given the fact the patient failed a full course of Bactrim, I am led to believe that this could be cellulitis from Streptococcus (as Bactrim has poor strep coverage) * Patient has shown significant favorable response with Rocephin/vancomycin give n in the ED. Vancomycin does provide good strep coverage * At this time, will transition to IV Ancef and continue to monitor until tomorrow. If patient continues to show favorable response plan will be to discharge with Duricef * There is no clinical evidence to suggest drainable abscess. No need for further imaging unless symptomatically worsens * will obtain A1C given mild hyperglycemia and risk for metabolic X given antipsychotics on board
--- NOTE | 2021-02-13 21:42 | Billing Data ---
Date of Service February 13, 2021 Coding Level of Care Code INT OBSERVATION CARE 70M LVL 3
[2021-02-13] MEDS ORDERED: cefTRIAXone SODIUM 2,000 MG in DEXTROSE 5% 50 ML IV SCH (22:00)
[2021-02-14] MEDS: ceFAZolin 2000MG 2,000 MG/15 ML SYR IV SCH (05:36)
[2021-02-14 06:55] LABS: Basophils # (auto) 0.04 K/uL (0-0.2); Basophils % (auto) 0.4 %; Eosinophils # (auto) 0.46 K/uL (0-0.5); Eosinophils % (auto) 4.6 %; Hematocrit (blood only) 46.5 % (42-52); Hemoglobin 15.6 g/dL (14.0-18.0); Immature Granulocytes # (auto) 0.03 K/uL (0.00-0.02); Immature Granulocytes % (auto) 0.3 %; Lymphocytes # (auto) 3.16 K/uL (1.2-3.4); Lymphocytes % (auto) 31.3 %; Mean Corpuscular Hemoglobin 27.3 pg (25-34); Mean Corpuscular Hgb Conc 33.5 g/dL (32-36); Mean Corpuscular Volume 81.4 fL (80-100); Mean Platelet Volume 9.8 fL (7.4-10.4); Monocytes # (auto) 1.05 K/uL (0.11-0.59); Monocytes % (auto) 10.4 %; Neutrophils # (auto) 5.35 K/uL (1.4-6.5); Platelet Count 250 K/uL (130-400); RDW Coefficient of Variation 13.7 % (11.5-14.5); RDW Standard Deviation 40.7 fL (36.4-46.3); Red Blood Count 5.71 M/uL (4.7-6.1); White Blood Count 10.09 K/uL (4.8-10.8)
[2021-02-14 07:30] LABS: BUN Creatinine Ratio 9.7 (10-20); Calcium 9.1 mg/dl (8.5-10.1); Creatinine Clr Calc Pharmacy 113.1 ml/min
[2021-02-14] MEDS: PANTOprazole 40 MG TAB PO SCH (08:46)
[2021-02-14] MEDS: busPIRone 5 MG TAB PO SCH (08:46)
[2021-02-14] MEDS: FLUoxetine HCL 20 MG CAP PO SCH (08:46)
[2021-02-14] MEDS: ARIPiprazole 5 MG TAB PO SCH (08:46)
[2021-02-14] MEDS: DEXTROAMPHETAMINE/AMPHETAMINE ER 10 MG CAP PO SCH (08:47)
[2021-02-14] MEDS: POLYETHYLENE (MIRALAX) 17 GM PACK PO SCH (08:47)
[2021-02-14 09:22] LABS: Potassium 3.9 mmol/L (3.5-5.1)
[2021-02-14] MEDS ORDERED: VANCOMYCIN TROUGH ONE (11:30)
--- NOTE | 2021-02-14 14:28 | Discharge Summary ---
Date of Service February 14, 2021 Admission HPI Per Admitting Provider Patient is a 25 year old male with PMHx GERD, Schizophrenia, Autism spectrum disorder, Pervasive developmental disorder, who presents with complaint of cellulitis of the R foot that had been previously treated with Bactrim x10 days, now with recurring pain. Patient was seen initially at his PCPs office on 01/30/21 for redness and swelling of the R foot, though to be secondary to cellulitis from a wound inbetween the 4th and 5th digits. He was started on Bactrim for additional MRSA coverage as he lives in a residential and has noticed fair improvement upon completion of the course on 02/09/21, however, noted the past day to have increased pain. He currently notes that he has pain primarily with palpation of the R foot near the 4th and 5th digits. He denies any fever, chills, SOB, chest pain, abdominal pain, headache, visual changes, dysuria, NVD. Med Hx: Schizophrenia, Autism spectrum disorder, Pervasive developmental disorder, GERD Surg Hx: None Soc HX: Denies tobacco use Principal Diagnosis 1. Cellulitis of the right footfailed Bactrim 2. Impaired fasting glucose 3. Metabolic syndrome Discharge Exam General: Resting comfortably in his hospital bed. NAD. HEENT: Head is AT/NC buccal mucosa is moist and pink Neck: No JVD. Negative hepatojugular reflex Cardiac: RRR without M/G/R Lungs: CTA without W/R/R Abdomen: Normoactive X4. Soft and nontender in all quadrants. Extremities: See skin Neuro: A&O X4 cranial nerves II through XII are grossly intact no focal neuro deficits Skin: Right foot with very mild residual erythema between the fourth and fifth toe extending no further than the base of the toes. Huge improvement compared to yesterday. Still with mild breakdown between the toes (appears to have had a blister that spontaneously ruptured). Psych: Appropriate affect pleasant and cooperative Discharge Data Allergies Allergy/AdvReac Type Severity Reaction Status Date / Time gluten Allergy Intermediate GI SYMPTOMS Verified 02/13/21 00:38 SEASONAL Allergy Intermediate ITCHY Uncoded 02/13/21 00:38 EYES, SNEEZING, CONGESTION Consultations 02/13/21 00:26 ED Decision to Admit Stat Procedures Performed X-ray of the right foot: IMPRESSION: 1. No acute fracture. No radiographic evidence for acute osteomyelitis within the right foot. 2. Dorsal soft tissue swelling of the right foot. Hospital Course (1) Cellulitis of foot: -treated with Bactrim DS 01/30 - 02/09 with some improvement but not resolution (which led me to believe this wasn't Staph- MRSA or MSSA) but perhaps strep and seems to have been from a blister between the toes -Patient was afebrile and hemodynamically stable but did have leukocytosis of 14,000. -X-ray of the foot showed soft tissue swelling without evidence of osteomyelitis -Given Rocephin/vancomycin in the ED and subsequently hospitalized -Converted to Ancef (for strep coverage) and did show significant favorable response -Patient seen on daily rounds 02/14 and has shown significant favorable response to antibiotic therapy (surrounding cellulitic area nearly completely resolved). White blood cell count has normalized. He has remained afebrile and hemodynamically stable -At this time, patient is medically hemodynamically stable for discharge home with continued antibiotic therapy (for strep coverage). -Rx: Duricef 500 mg 1 tablet by mouth twice daily -wound care provided (see below) (2) Metabolic syndrome: -Likely result of underlying antipsychotic medications -Lengthy discussion with patient regarding the importance of lifestyle modifications and dietary changes (3) Impaired fasting glucose: -See #2 -A1C obtained= 6.9% -Recommend dietitian referral which could be facilitated as an outpatient -Start Metformin 500 mg once daily with largest meal -Recommend follow-up metabolic panel in 1 month given start of Metformin (to trend renal function). At discretion of PCP (4) Schizophrenia: -Continue Abilify and BuSpar as prior to hospitalization -Follow-up with psych (5) Autism spectrum disorder: - continue Adderall as prior to hospitalization (6) PDD (pervasive developmental disorder): Total Time Total Time Spent Total Time Spent (In Minutes): 35 including calling mother and time spent with patient Discharge Plan Discharge Items Patient Disposition: Home - Self-Care Reason For Visit: RLE CELLULITIS Discharge Diagnosis: 1. Cellulitis of the right Foot 2. Impaired Fasting Glucose/ Metabolic X syndrome Activity: Resume your previous activity Non-emergency contact: Primary Care Provider Call non-emergency contact if: you have any medication questions Follow-up/Referrals: Michelle Montague [Primary Care Provider] - (A crude unit operator from [facility] will be contacting you with a date and time for you to see your PCP being that you are being discharged on a holiday.) Diet: Other - See Diet Comment Diet Comment: avoid concentrated sweets Addtl Attending Provider Instructions: - you were hospitalized with in infection of your Right foot - You responded well to IV antibiotics - You are being sent home with continued oral antibiotics (Duricef to take twice a day until completed-- next dose due tonight) - I suspect that this infection started because of a blister between your toes. Keep the skin clean (with soap and water). Pat. dry. LET IT OPEN TO AIR during the day. IF putting on a shoe (going out of the house)-- apply a triple antibiotic ointment between the 4th and 5th toes and cover with dry piece of gauze until healed. - In addition, your blood sugars have been running on the high end of normal. Given your medications that you take for your Schizophrenia-- this GREATLY PUTS YOU ARE RISK FOR DEVELOPING DIABETES. At this point, I would say that you are a "pre-diabetic" - It is IMPERATIVE that you get control of this now or you will inevitably become a diabetic (which puts you are risk for nonhealing wounds/amputations, kidney failure, blindness, heart attack, stroke, etc) - you need to watch your diet (avoid concentrated sweets). Would recommend that you be referred to a direct chill caster to help you with this. RECOMMEND HIGH PROTEIN/ LOW CARB diet - would advise increasing your activity and weight loss - You have been started on Metformin 500mg daily (recommend taking this with dinner) to help with your "pre-diabetes" - follow up with PCP: 7-10 days - return to the ED for new or worsening symptoms Pending Studies at Discharge: No Stand-Alone Forms: [facility] Medications and DC Order Prescriptions: New cefadroxil 500 mg capsule 500 mg PO BID Qty: 19 RF: 0 metformin 500 mg tablet 500 mg PO DAILY Qty: 30 RF: 0 Continued buspirone 10 mg tablet 10 mg PO BID RF: 0 fluoxetine 20 mg capsule 20 mg PO DAILY RF: 0 aripiprazole 5 mg tablet 5 mg PO DAILY RF: 0 acetaminophen 325 mg Tablet 325 mg PO Q4 MDD 3g PRN (Reason: Pain) RF: 0 polyethylene glycol 3350 [Miralax] 17 gram/dose Powder 17 g PO DAILY RF: 0 multivitamin,tx-minerals Tablet 1 tab PO DAILY RF: 0 loperamide 2 mg Capsule 2 mg PO DIRECTED PRN (Reason: Diarrhea) RF: 0 Gold Dow Ultimate Healing Liquid 1 ea TOPICAL TID PRN (Reason: Dry Skin) RF: 0 omeprazole 20 mg capsule,delayed release(DR/EC) 20 mg PO DAILY RF: 0 guaifenesin 100 mg/5 mL Liquid 200 mg PO Q4H MDD 6 DOSES/24 HOURS PRN (Reason: Cough) RF: 0 dextroamphetamine-amphetamine 20 mg capsule,extended release 24hr 20 mg PO DAILY RF: 0 ibuprofen 600 mg Tablet 600 mg PO QID PRN (Reason: Pain) RF: 0 sodium chloride [[place] Nasal] 0.65 % Aerosol,[place] 1 spray INTRANASAL DIRECTED PRN (Reason: NASAL DRYNESS) RF: 0 Discharge Orders: Discharge Order (Routine); Ordered 02/14/21 Ordered By: Pauline Alejandre/Other Patient Handouts: Understanding Carbohydrates, Diabetes: Meal Planning, Diabetes Carbs Fats Protein, Metabolic Syndrome Admission Data Admit Date/Time: 02/13/21 00:50 Attending Provider: Cj Esposito Admit Provider: Carlos Mckay Primary Care Provider: Michelle Montague Other Providers: Cj Esposito Other Interventions: Discharge Summary Assessment (RN) Last Done: 02/14/21 10:54 Supervising Physician Co-Signing Physician Notes I supervised Pauline Chau PA-C on the care of this patient. I interviewed and examined the patient independently of her. The plan is as written in her note except for any following changes/exceptions: None Patient doing better today. Erythema clearly improving on Strep coverage (off MRSA coverage since yesterday). Will discharge on oral abx with similar coverage. Coding Level of Care Code 03355 OBS Care - Discharge Diagnoses Cellulitis of foot L03.119 Metabolic syndrome E88.81 Impaired fasting glucose R73.01 Schizophrenia F20.9 Autism spectrum disorder F84.0 PDD (pervasive developmental disorder) F84.9
== END 2021-02-14 12:03 | disposition home or self-care (01) ==
LOC: ED 21:22 → 3W 21:22 → SUATTDRO 02-13 00:50 → 3W 02-13 01:41